=== PATIENT | female | born 2000 | race Two or more races ===

== ENCOUNTER 2019-06-23 11:48 | Emergency (ER) | payer MEDICAID, OTHER ==
--- NOTE | 2019-06-23 12:23 | ED ---
- HPI Summary HPI Summary: 18 year old F arriving via private car to [facility] complains of abdominal cramping and occasional sharp abdominal pain and back pain starting 2 hours prior to arrival. Patient is 16 weeks . . Patient just moved to [place] from [facility] and has not yet established OBGYN. Had last ultrasound done at 8 weeks. No abdominal pain or back pain currently. No dysuria, vaginal bleeding, vaginal discharge. No recent injury/fall/trauma. Symptoms aggravated by nothing. Symptoms alleviated by nothing. Hx PCOS. She recently got over cold. Medications reviewed. Home Medications Medication Instructions Recorded Confirmed Type NK [No Home Medications Reported] 06/23/19 06/23/19 History - History of Current Complaint Chief Complaint: EDOBProblems Stated Complaint: 19 WKS PREG/CRAMPING PER PT Time Seen by Provider: 06/23/19 12:13 Hx Obtained From: Patient Chief Complaint: Other: - abdominal cramping, occasional abdominal pain and back pain Onset/Duration: Started Hours Ago - 2, Still Present Timing: Constant Current Severity: None Pain Intensity: 0 Aggravating Factors: Nothing Alleviating Factors: Nothing Associated Signs and Symptoms: Positive: Negative - dysuria, vaginal bleeding, vaginal discharge, Other: - abdominal pain, back pain - Allergies/Home Medications Allergies/Adverse Reactions: Allergies Allergy/AdvReac Type Severity Reaction Status Date / Time No Known Allergies Allergy Verified 06/23/19 11:55 Home Medications: Home Medications NK [No Home Medications Reported] 06/23/19 [History Confirmed 06/23/19] PMH/Surg Hx/FS Hx/Imm Hx Previously Healthy: No - Hx PCOS Endocrine/Hematology History: Denies: Hx Diabetes Cardiovascular History: Denies: Hx Hypertension Respiratory History: Denies: Hx Asthma - Surgical History Surgical History: None Infectious Disease History: No Infectious Disease History: Denies: Traveled Outside the [place] in Last 30 Days - Family History Known Family History: Positive: Other - NEG: cancer Negative: Cardiac Disease, Hypertension, Diabetes - Social History Alcohol Use: None Substance Use Type: Reports: None Hx Tobacco Use: No Smoking Status (MU): Never Smoked Tobacco Review of Systems Positive: Abdominal Pain Genitourinary: Negative - vaginal bleeding, vaginal discharge Positive: other - abdominal cramping. Negative: dysuria Positive: Other - back pain All Other Systems Reviewed And Are Negative: Yes Physical Exam - Summary Physical Exam Summary: Constitutional: Well-developed, Well-nourished, Alert. (-) Distressed Skin: Warm, Dry HENT: Normocephalic; Atraumatic Eyes: Conjunctiva normal Neck: Musculoskeletal ROM normal neck. (-) JVD, (-) Stridor, (-) Tracheal deviation Cardio: Rhythm regular, rate normal, Heart sounds normal; Intact distal pulses; The pedal pulses are 2+ and symmetric. Radial pulses are 2+ and symmetric. (-) Murmur Pulmonary/Chest wall: Effort normal. (-) Respiratory distress, (-) Wheezes, (-) Rales Abd: Soft, gravid, mild suprapubic tenderness, (-) Distension, (-) Guarding, (- ) Rebound Musculoskeletal: (-) Edema Lymph: (-) Cervical adenopathy Neuro: Alert, Oriented x3 Psych: Mood and affect Normal - Physical Exam Triage Information Reviewed: Yes Vital Signs Reviewed: Yes Procedures - Sedation Patient Received Moderate/Deep Sedation with Procedure: No Diagnostics - Vital Signs Vital Signs Temp Pulse Resp BP Pulse Ox 06/23/19 11:52 98.8 F 96 16 142/67 100 - Laboratory Result Diagrams: 06/23/19 12:32 06/23/19 12:32 Lab Statement: Any lab studies that have been ordered have been reviewed, and results considered in the medical decision making process. - Ultrasound Ultrasound Interpretation Completed By: Radiologist - IMPRESSION: #. Viable- appearing single intrauterine gestation, corresponding in size with the predicted gestational age, in variable presentation with normal movement and cardiac activity. Long closed cervix. Negative for placenta previa. ED physician has reviewed this imaging report. Re-Evaluation - Re-Evaluation First Eval Re-Evaluation Time: 13:35 Change: Improved - she agrees to d/c Course/Dx - Course Course Of Treatment: 18 y/o F presents with abdominal cramping and occasional sharp abdominal pain and back pain starting 2 hours prior to arrival. She is 16 weeks . . Has not yet established OBGYN. Had last ultrasound done at 8 weeks. No dysuria, vaginal bleeding, vaginal discharge. No recent injury/ fall/trauma. Hx PCOS. Upon physical exam, the abdomen is gravid. She has mild suprapubic tenderness. Bloodwork results with no significant abnormalities except for potassium 3.1. Patient was given potassium chloride. Urinalysis results with no significant abnormalities. ultrasound shows #. Viable- appearing single intrauterine gestation, corresponding in size with the predicted gestational age, in variable presentation with normal movement and cardiac activity. Long closed cervix. Negative for placenta previa. The patient feels better. Patient will be discharged home with follow up from OBGYN next week. Patient was instructed to return to Emergency Department for new or worsening symptoms. Patient understands and is agreeable to this plan. - Diagnoses Provider Diagnoses: Discharge ED - Sign-Out/Discharge Documenting (check all that apply): Patient Departure - Discharge Plan Condition: Stable Disposition: HOME Patient Education Materials: (ED) Referrals: Aurora Lozano MD [Medical Doctor] - Additional Instructions: Please follow up with ODILIA Reardon, next week. Return to the Emergency Department for changing or worsening symptoms. - Billing Disposition and Condition Condition: STABLE Disposition: Home - Attestation Statements Document Initiated by Scribe: Yes Documenting Scribe: Sara Avila Provider For Whom Norae is Documenting (Include Credential): Ian Brown DO Scribe Attestation: ISara, scribed for Ian Brown DO on 06/23/19 at 1349. Scribe Documentation Reviewed: Yes Provider Attestation: The documentation as recorded by the Sara chase accurately reflects the service I personally performed and the decisions made by me, Ian Brown DO Status of Scribe Document: Viewed
[2019-06-23 12:43] LABS: ABS Eosinophils 0.1 10^3/ul (0-0.6); ABS Lymphocytes 1.4 10^3/ul (1.0-4.8); ABS Monocytes 0.6 10^3/ul (0-0.8); ABS Neutrophils 5.7 10^3/ul (1.5-7.7); Hematocrit 34 % (35-47); Hemoglobin 11.8 g/dL (12.0-16.0); Lymphocyte % 18.4 %; Mean Corpuscular HGB Conc 35 g/dL (31-36); Mean Corpuscular Hemoglobin 27 pg (27-31); Mean Corpuscular Volume 79 fL (80-97); Mean Platelet Volume 7.9 fL (7.4-10.4); Nucleated Red Blood Cells % 0.1; Platelet Count 243 10^3/uL (150-450); Red Blood Count 4.36 10^6 /uL (3.70-4.87); Red Cell Distribution Width 14 % (10-15); White Blood Count 7.8 10^3/uL (3.5-10.8)
[2019-06-23 12:44] LABS: Urine Appearance Clear; Urine Bilirubin Negative (Negative); Urine Blood Negative (Negative); Urine Color Straw; Urine Glucose Negative (Negative); Urine Ketones Negative (Negative); Urine Nitrite Negative (Negative); Urine Protein Negative (Negative); Urine Specific Gravity 1.004 (1.010-1.030); Urine Urobilinogen Negative (Negative)
[2019-06-23 13:00] LABS: Albumin 3.8 g/dL (3.2-5.2); Albumin/Globulin Ratio 1.3 (1-3); Calcium 9.4 mg/dL (8.6-10.3); EGFR African American 192.3 (>60); EGFR Non-African American 158.9 (>60); Globulin 2.9 g/dL (2-4); Potassium 3.1 mmol/L (3.5-5.0); Total Bilirubin 0.5 mg/dL (0.2-1.0); Total Protein 6.7 g/dL (6.4-8.9)
[2019-06-23] MEDS ORDERED: Potassium Chlor TAB* 20 MEQ TAB.ER PO ONE (13:03)
[2019-06-23 13:41] VITALS: BP 98/52
[2019-06-23 13:54] LABS: HIV 4th Generation Nonreactive (Nonreactive)
== END 2019-06-23 13:41 | disposition home or self-care (01) ==
LOC: ED 11:48
DX: Z34.92 Encounter for supervision of normal pregnancy, unspecified, second trimester (principal); M54.9 Dorsalgia, unspecified; R10.9 Unspecified abdominal pain; Z3A.16 16 weeks gestation of pregnancy
CPT/HCPCS: 36415; 76815; 80053; 81003; 85025; 87389; 99282; A9270-GY

== ENCOUNTER 2019-07-10 23:04 | Emergency (ER) | payer OTHER ==
--- NOTE | 2019-07-10 23:37 | ED ---
- HPI Summary HPI Summary: 18 year old female presents with right flank pain for the past 2 days. She admits to nausea vomiting. she denies any shortness of breath or chest pain. She states she went to a clinic today and was told she has hematuria. They did not do any imaging. She was started on antibiotic but is unsure of the name. She denies any fevers. no dysuria, urgency, frequency. No vaginal bleeding. Has had no issues with the so far. - History of Current Complaint Chief Complaint: EDAbdPain Stated Complaint: RT SIDE PAIN PER PT Time Seen by Provider: 07/10/19 23:20 Pain Intensity: 6 - Allergies/Home Medications Allergies/Adverse Reactions: Allergies Allergy/AdvReac Type Severity Reaction Status Date / Time No Known Allergies Allergy Verified 06/23/19 11:55 Home Medications: Home Medications Amoxicillin/Clavulanate SUSP* [Augmentin SUSP*] 480 mg PO BID #1 btl 07/11/19 [ Rx] Metoclopramide LIQ* [Reglan LIQ*] 10 mg PO Q6HR #1 oral.soln 07/11/19 [Rx] Prena1 Chew Tablet 1 tab PO DAILY 07/11/19 [History Confirmed 07/11/19] PMH/Surg Hx/FS Hx/Imm Hx Endocrine/Hematology History: Denies: Hx Diabetes Cardiovascular History: Denies: Hx Hypertension Respiratory History: Denies: Hx Asthma Infectious Disease History: No Infectious Disease History: Denies: Traveled Outside the [place] in Last 30 Days - Family History Known Family History: Positive: Other - NEG: cancer Negative: Cardiac Disease, Hypertension, Diabetes - Social History Alcohol Use: None Substance Use Type: Reports: None Hx Tobacco Use: No Smoking Status (MU): Never Smoked Tobacco Review of Systems Negative: Fever Negative: Chest Pain Negative: Shortness Of Breath Positive: flank pain. Negative: frequency All Other Systems Reviewed And Are Negative: Yes Physical Exam - Physical Exam Triage Information Reviewed: Yes Vital Signs Reviewed: Yes Appearance: Positive: Well-Appearing Skin: Positive: Warm, Dry Head/Face: Positive: Normal Head/Face Inspection Eyes: Positive: Normal, Conjunctiva Clear ENT: Positive: Pharynx normal Respiratory/Lung Sounds: Positive: Clear to Auscultation, Breath Sounds Present Cardiovascular: Positive: Normal, RRR Abdomen Description: Positive: Soft, CVA Tenderness (R). Negative: CVA Tenderness (L) Bowel Sounds: Positive: Present Musculoskeletal: Positive: Normal Neurological: Positive: Normal Psychiatric: Positive: Normal Procedures - Sedation Patient Received Moderate/Deep Sedation with Procedure: No Diagnostics - Vital Signs Vital Signs Temp Pulse Resp BP Pulse Ox 07/10/19 23:08 98.0 F 87 16 118/70 100 - Laboratory Result Diagrams: 07/11/19 00:14 07/11/19 00:14 Lab Statement: Any lab studies that have been ordered have been reviewed, and results considered in the medical decision making process. - Ultrasound No standard instances Ultrasound Interpretation Completed By: Radiologist Summary of Ultrasound Findings: Mild right hydronephrosis. Hydronephrosis persist after postvoid examination. No evidence of stones or mass or cyst. Left kidney measures 9.5 cm in demonstrate mild hydronephrosis which resolves on postvoid images. Re-Evaluation - Re-Evaluation First Eval Re-Evaluation Time: 01:26 Comment: nausea resolved, patient states can not swallow pills so will have switch to augmentin liquid Course/Dx - Course Course Of Treatment: 18 year old female presents with right flank pain for the past 2 days. She admits to nausea vomiting. she denies any shortness of breath or chest pain. She states she went to a clinic today and was told she has hematuria. They did not do any imaging. She was started on antibiotic but is unsure of the name. She denies any fevers. no dysuria, urgency, frequency. No vaginal bleeding. Has had no issues with the so far. On exam nontender abdomen. Tenderness of right flank and right side of lower back. wbc 12.9. crp normal. urine potential infection. renal u/s shows mild hydro. afebrile. do not suspect has pyelo at this point but will give dose of rocephin amd have contine augmentin at home. believe this is more muscular pain as pain is also lower than kidney on exam and hydro may be just do to . less likely think is stone. told follow up with ob. told if develop persistent fevers to return. patient understand and agrees with plan. - Differential Diagnosis/HQI/PQRI: Other: - pyelo, kidney stone - Diagnoses Provider Diagnoses: UTI (urinary tract infection), Flank pain, Discharge ED - Sign-Out/Discharge Documenting (check all that apply): Patient Departure - Discharge Plan Condition: Good Disposition: HOME Prescriptions: Amoxicillin/Clavulanate SUSP* [Augmentin SUSP*] 480 mg PO BID #1 btl Metoclopramide LIQ* [Reglan LIQ*] 10 mg PO Q6HR #1 oral.soln Patient Education Materials: Flank Pain (ED) Referrals: No Primary Care Phys,NOPCP [Primary Care Provider] - Additional Instructions: take augmentin 6ml twice a day for 5 days take 10 ml reglan as needed for nausea Drink plenty of fluids take tyenlol every 6 hours for pain Follow up with ob Return to ED if develop fever or any new or worsening symptoms - Billing Disposition and Condition Condition: GOOD Disposition: Home
[2019-07-11] MEDS ORDERED: Metoclopramide IV* 5 MG/ML 2 ML VIAL IV SLOW PU ONE (00:16)
[2019-07-11] MEDS ORDERED: NS 0.9% 1000 ML** 1,000 ML IV ONE (00:16)
[2019-07-11 00:28] LABS: ABS Monocytes 0.8 10^3/ul (0-0.8); ABS Neutrophils 11.1 10^3/ul (1.5-7.7); Eosinophil % 0.1 %; Hematocrit 33 % (35-47); Hemoglobin 10.9 g/dL (12.0-16.0); Lymphocyte % 7.9 %; Mean Corpuscular HGB Conc 34 g/dL (31-36); Mean Corpuscular Hemoglobin 27 pg (27-31); Mean Corpuscular Volume 80 fL (80-97); Mean Platelet Volume 8.2 fL (7.4-10.4); Platelet Count 215 10^3/uL (150-450); Red Blood Count 4.06 10^6 /uL (3.70-4.87); Red Cell Distribution Width 15 % (10-15); White Blood Count 12.9 10^3/uL (3.5-10.8)
[2019-07-11 00:41] LABS: ALT 26 U/L (7-52); AST 17 U/L (13-39); Albumin 3.6 g/dL (3.2-5.2); Albumin/Globulin Ratio 1.2 (1-3); Alkaline Phosphatase 45 U/L (34-104); Anion Gap 9 mmol/L (2-11); BUN/Creatinine Ratio 9.1 (8-20); Blood Urea Nitrogen 5 mg/dL (6-24); C Reactive Protein 3.22 mg/L (<8.01); CO2 Carbon Dioxide 22 mmol/L (22-32); Calcium 9.5 mg/dL (8.6-10.3); Chloride 104 mmol/L (101-111); EGFR African American 172.3 (>60); EGFR Non-African American 142.4 (>60); Globulin 3.1 g/dL (2-4); Glucose 110 mg/dL (70-100); Potassium 3.4 mmol/L (3.5-5.0); Sodium 135 mmol/L (135-145); Total Protein 6.7 g/dL (6.4-8.9)
[2019-07-11 00:56] LABS: Urine Appearance Clear; Urine Bilirubin Negative (Negative); Urine Blood Negative (Negative); Urine Color Straw; Urine Glucose Negative (Negative); Urine Ketones Negative (Negative); Urine Nitrite Negative (Negative); Urine Protein Negative (Negative); Urine Specific Gravity 1.005 (1.010-1.030); Urine Urobilinogen Negative (Negative)
[2019-07-11 01:00] LABS: Urine Bacteria Absent (Absent); Urine Red Blood Cell Trace(0-2/hpf) (Absent); Urine Squamous Epithelial Cell Present (Absent); Urine White Blood Cell Trace(0-5/hpf) (Absent)
[2019-07-11] MEDS ORDERED: cefTRIAXone(*) 1 GM in NS 0.9% 50 ML* 50 ML IVPB ONE (01:03)
[2019-07-11 01:50] VITALS: BP 133/61
== END 2019-07-11 01:49 | disposition home or self-care (01) ==
LOC: ED 23:04
DX: O23.40 Unspecified infection of urinary tract in pregnancy, unspecified trimester (principal); Z3A.00 Weeks of gestation of pregnancy not specified
CPT/HCPCS: 36415; 76775; 80053; 81003; 81015; 83605; 83690; 85025; 86140; 96361; 96365; 96375; 99284; J0696; J2765

== ENCOUNTER 2019-10-13 20:28 | Inpatient (IN) ==
[2019-10-13 21:48] LABS: Urine Appearance Clear; Urine Bilirubin Negative (Negative); Urine Blood Negative (Negative); Urine Color Yellow; Urine Glucose Negative (Negative); Urine Ketones Negative (Negative); Urine Nitrite Negative (Negative); Urine Protein Negative (Negative); Urine Specific Gravity 1.004 (1.010-1.030); Urine Urobilinogen Negative (Negative)
[2019-10-13 21:53] LABS: Urine Bacteria 1+ (Absent); Urine Red Blood Cell Trace(0-2/hpf) (Absent); Urine Squamous Epithelial Cell Present (Absent); Urine White Blood Cell Trace(0-5/hpf) (Absent)
[2019-10-13 22:07] LABS: Urine Benzodiazepine Screen None Detected (None Detect); Urine Opiates Screen None Detected (None Detect)
[2019-10-13] MEDS ORDERED: Betamethasone 6 mg/ml 5 ml VIAL IM ONE (22:20)
[2019-10-13] MEDS ORDERED: NS 0.9% 100 ml BAG 100 ML ONE (22:53)
[2019-10-13 22:54] LABS: Hematocrit 34 % (35-47); Hemoglobin 11.6 g/dL (12.0-16.0); Mean Corpuscular HGB Conc 35 g/dL (31-36); Mean Corpuscular Hemoglobin 26 pg (27-31); Mean Corpuscular Volume 76 fL (80-97); Mean Platelet Volume 8.8 fL (7.4-10.4); Platelet Count 198 10^3/uL (150-450); Red Blood Count 4.44 10^6 /uL (3.70-4.87); Red Cell Distribution Width 13 % (10-15); White Blood Count 6.8 10^3/uL (3.5-10.8)
[2019-10-13] MEDS ORDERED: Lactated Ringers 1000 ml BAG 1,000 ML IV SCH (23:00)
[2019-10-13] MEDS: Ampicillin ADVAN 2 GM in NS 0.9% 100 ml BAG 100 ML IVPB SCH (23:18)
[2019-10-14 00:27] LABS: ABS Eosinophils 0.2 10^3/ul (0-0.6); ABS Lymphocytes 1.4 10^3/ul (1.0-4.8); ABS Monocytes 0.7 10^3/ul (0-0.8); Eosinophil % 3.1 %; Lymphocyte % 21.3 %; Nucleated Red Blood Cells % 0.1
[2019-10-14] MEDS: Ampicillin ADVAN 2 GM in NS 0.9% 100 ml BAG 100 ML IVPB SCH ×3 (05:20→18:00)
[2019-10-14] MEDS ORDERED: HYDROmorphone 0.5 MG/0.5 ML SYRINGE IV SLOW PU PRN (05:49)
[2019-10-14] MEDS ORDERED: Promethazine INJ(RESTRICTED) 25 MG/ML 1 ml VIAL IV PRN (05:50)
[2019-10-14] MEDS ORDERED: Lactated Ringers 1000 ml BAG 1,000 ML IV SCH ×2 (06:00→14:00)
[2019-10-14] MEDS ORDERED: Oxytocin in LR 20 UNITS/1,000 ML BAG IVPB ONE (11:43)
[2019-10-14] MEDS ORDERED: Witch Hazel PAD JAR TOPICAL PRN (13:32)
[2019-10-14] MEDS ORDERED: Glycerin ADULT 2.4 gm SUPP PR PRN (13:32)
[2019-10-14] MEDS ORDERED: Oxytocin in LR 20 UNITS/1,000 ML BAG IVPB SCH (14:00)
[2019-10-14] MEDS: Dibucaine 1% OINT 28.35 GM TUBE PR PRN ×2 (14:21→19:55)
[2019-10-14] MEDS: ceFOXitin 2 GM IVPREMIX 2 GM/50 ML BAG IVPB SCH (20:40)
[2019-10-15] MEDS: ceFOXitin 2 GM IVPREMIX 2 GM/50 ML BAG IVPB SCH ×3 (03:45→19:57)
[2019-10-15 06:14] LABS: ABS Eosinophils 0.3 10^3/ul (0-0.6); ABS Lymphocytes 2.8 10^3/ul (1.0-4.8); ABS Monocytes 1.5 10^3/ul (0-0.8); Eosinophil % 2.4 %; Hematocrit 30 % (35-47); Hemoglobin 10.1 g/dL (12.0-16.0); Mean Corpuscular HGB Conc 34 g/dL (31-36); Mean Corpuscular Hemoglobin 26 pg (27-31); Mean Corpuscular Volume 76 fL (80-97); Mean Platelet Volume 8.3 fL (7.4-10.4); Platelet Count 170 10^3/uL (150-450); Red Blood Count 3.88 10^6 /uL (3.70-4.87); Red Cell Distribution Width 13 % (10-15); White Blood Count 12.7 10^3/uL (3.5-10.8)
[2019-10-15] MEDS ORDERED: Varicella Virus Vaccine Live 0.5 ML VIAL SUBCUT ONE (09:00)
[2019-10-15] MEDS: Docusate LIQ 100 MG/10 ML UDC PO SCH ×3 (09:41→21:00)
[2019-10-15] MEDS: Ibuprofen ADULT LIQ 600 MG/30 ML UDC PO PRN ×2 (09:41→18:44)
[2019-10-16] MEDS: ceFOXitin 2 GM IVPREMIX 2 GM/50 ML BAG IVPB SCH (04:00)
[2019-10-16] MEDS: Docusate LIQ 100 MG/10 ML UDC PO SCH ×2 (07:37→12:13)
[2019-10-16 12:18] VITALS: BP 115/67
[2019-10-16] MEDS: Ibuprofen ADULT LIQ 600 MG/30 ML UDC PO PRN (18:27)
== END 2019-10-16 18:51 | disposition home or self-care (01) | DRG 560 ==
LOC: MCHOBOUT 20:28 → MCHOB 10-14 08:44
PROVIDERS: ADMIT Obstetrics & Gynecology; ATTEND Obstetrics & Gynecology